=== PATIENT | female | born 2000 | race Caucasian/White ===

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

== ENCOUNTER 2023-05-21 06:55 | Inpatient (IN) | payer BC ==
[2023-05-21] MEDS ORDERED: Methylergonovine 0.2 MG/1 ML Amp IM PRN ×2 (09:41→18:55)
[2023-05-21] MEDS ORDERED: Lidocaine 1% 50 ML MDV INJECT PRN (09:41)
[2023-05-21] MEDS ORDERED: Sodium Chloride 0.9% 10 ML Syringe FLUSH PRN (09:41)
[2023-05-21] MEDS ORDERED: Tranexamic Acid IN NACL,ISO-OS 1,000 MG in Premix Bag 1 BAG IV PRN ×4 (09:41→18:55)
[2023-05-21] MEDS ORDERED: Butorphanol 1 MG/ML SDV IVPUSH PRN (09:41)
[2023-05-21] MEDS ORDERED: Misoprostol 200 MCG Tab PO PRN (09:41)
[2023-05-21] MEDS ORDERED: Carboprost Tromethamine 250 MCG/1 mL Vial IM PRN (09:41)
[2023-05-21] MEDS ORDERED: Sodium Chloride 0.9% 2.5 ML Syringe FLUSH PRN (09:41)
[2023-05-21] MEDS ORDERED: Water For Irrigation,Sterile 1,000 ML Container IRR PRN (09:41)
[2023-05-21] MEDS ORDERED: Sodium Chloride 0.9% 20 ML SDV IV PRN (09:41)
[2023-05-21] MEDS ORDERED: Oxytocin/0.9 % Sodium Chloride 30 UNIT/500 ML BAG IV SCH (09:45)
[2023-05-21] MEDS ORDERED: Lactated Ringers 1,000 ML IV SCH (09:45)
[2023-05-21 10:35] LABS: HEMATOCRIT 39.5 % (37.0-47.0); HEMOGLOBIN 14.2 g/dL (12.0-16.0); MEAN CORPUSCULAR HEMOGLOBIN 32.4 pg (28.0-32.0); MEAN CORPUSCULAR HGB CONC 35.9 g/dL (32.0-36.0); MEAN CORPUSCULAR VOLUME 90.2 fL (83.0-99.0); MEAN PLATELET VOLUME 9.8 fL (9.4-12.3); PLATELET COUNT,PLT 193 K/uL (150-400); RED BLOOD CELL COUNT 4.38 M/uL (4.10-5.30); WHITE BLOOD CELL COUNT,WBC 15.18 K/uL (3.9-11.3)
[2023-05-21] MEDS ORDERED: ePHEDrine 50 MG/ML SDV IVPUSH PRN ×2 (10:39)
[2023-05-21] MEDS ORDERED: Phenylephrine HCl 0.5 MG/5 ML AMP IVPUSH PRN (10:39)
[2023-05-21] MEDS ORDERED: Ropivacaine HCl/PF 400 MG in Premix Bag 1 BAG EPIDUR SCH (10:45)
[2023-05-21] MEDS ORDERED: Ondansetron 4 MG/2 ML SDV IVPUSH PRN (11:25)
[2023-05-21] MEDS ORDERED: Lanolin 100% Cream 7 GM Tube TOP PRN (18:55)
[2023-05-21] MEDS ORDERED: Acetaminophen 500 MG Tab PO PRN (18:55)
[2023-05-21] MEDS ORDERED: Bisacodyl 10 MG Supp RECTAL PRN (18:55)
[2023-05-21] MEDS ORDERED: Benzocaine/Menthol 20%-0.5% Spray 78 GM Cannister TOP PRN (18:55)
[2023-05-21 19:11] LABS: PH,UMBILICAL ARTERIAL 7.287 (7.18-7.38); PH,UMBILICAL VENOUS 7.282 (7.25-7.45)
[2023-05-21] MEDS: Ibuprofen 800 MG Tab PO PRN (19:49)
[2023-05-21] MEDS: Witch Hazel Medicated Pads 40/Jar TOP PRN (19:50)
[2023-05-22 05:37] LABS: HEMATOCRIT 36.8 % (37.0-47.0); HEMOGLOBIN 13.2 g/dL (12.0-16.0)
[2023-05-22] MEDS: Ibuprofen 800 MG Tab PO PRN ×2 (09:55→19:43)
[2023-05-22] MEDS: Docusate Sodium 100 MG Cap PO PRN (19:44)
[2023-05-23] MEDS: Ibuprofen 800 MG Tab PO PRN ×2 (08:55→16:57)
[2023-05-23] MEDS: Docusate Sodium 100 MG Cap PO PRN (11:07)
[2023-05-23] MEDS: Witch Hazel Medicated Pads 40/Jar TOP PRN (15:30)
== END 2023-05-23 20:04 | disposition home or self-care (01) | DRG 560 ==
LOC: MW.OBCHECK 06:55 → MW.OB 06:56 → MW.OBCHECK 10:26 → MW.OB 10:27 → OBSVTOIN 18:14 → MW.OB 05-22 00:20
PROVIDERS: ADMIT Obstetrics & Gynecology; ATTEND Obstetrics & Gynecology
PROC: 10E0XZZ Delivery of Products of Conception, External Approach (ICD-10-PCS; principal; 2023-05-21)
PROC: 0KQM0ZZ Repair Perineum Muscle, Open Approach (ICD-10-PCS; 2023-05-21)
DX: O48.0 Post-term pregnancy (principal); Z37.0 Single live birth; O99.824 Streptococcus B carrier state complicating childbirth; O70.1 Second degree perineal laceration during delivery; O77.0 Labor and delivery complicated by meconium in amniotic fluid; Z3A.41 41 weeks gestation of pregnancy; Z28.39 Other underimmunization status
CPT/HCPCS: 36415; 59025; 82803; 84112; 85014; 85018; 85027; 86592; 86850; 86900; 86901; A9270-GY; J2001